=== PATIENT | female | born 1960 | race Caucasian/White ===

== ENCOUNTER 2016-10-10 12:59 | Observation (INO) | payer OTHER ==
--- NOTE | ~2016-10-10 | HP ---
History And Physical [place] [id number] [facility] [address] NAME: ANA MARIA IZQUIERDO : 58 STATUS : ADM Radha PAT#: [id number] AGE: 56 ADM/REG DATE : 10/10/16 MR#: [id number] REPORT SERV DATE: 10/11/16 DICTATED BY: IDALMIS COLLINS DATE: 10/11/16 REPORT STATUS : Draft TRANSCRIBED BY: MODBradley DATE: 10/11/16 DATE OF ADMISSION: 10/10/2016 FORGING DIE SINKER: Tk Padgett M.D., Ph.D, F.A.C.C. CHIEF COMPLAINT: Exertional chest pain. HISTORY OF PRESENT ILLNESS: A very pleasant, 56-year-old, white female with known history of CAD, identified by cath in 2010, has mild to moderate disease in her LAD and circumflex but with small vessel disease as well that is not amenable to intervention. The patient states that over the last several weeks she has had chest pain described as a pressure and a sharp sensation particularly when she is exercising. It at times radiates to her left arm, described as a tingling, and she reports associated shortness of breath, nausea, diaphoresis, dizziness, and belching. At its most intense, the chest pain is rated a 5/10. At time of interview in the CPOU, she is pain free. The episodes last approximately 10 minutes in duration. They resolve with rest and has not required nitroglycerin. At this point, she did report these symptoms to her PCP and the [facility] with a recommendation to come to the emergency room for further evaluation. The patient reports claudication symptoms as well on her right lower extremity with exertion. She has testing scheduled for 10/15 through her PCP's office. The patient denies any personal history of myocardial infarction, stroke, DVT, or pulmonary embolus. The patient recently treated for bronchitis with antibiotics. Denies palpitations. No syncopal episodes. Denies PND or orthopnea. PAST MEDICAL HISTORY: 1. CAD with small vessel disease, not amenable to PCI. 2. Hypertension. 3. Dyslipidemia. 4. AODM. 5. GERD. 6. Crohn's. 7. Fibromyalgia. 8. Hiatal hernia. 9. Narcolepsy. 10.Remote tobacco abuse. 11.Positive family history for early CAD. PAST SURGICAL HISTORY: 1. Hysterectomy. 2. Bilateral carpal tunnel. 3. Cyst removed from left knee and left foot. 4. Cholecystectomy. 5. Appendectomy. SOCIAL HISTORY: She is with three children, disabled secondary to her fibromyalgia. History And Physical [address] [address] NAME: ANA MARIA IZQUIERDO : 58 STATUS : ADM Radha PAT#: [id number] AGE: 56 ADM/REG DATE : 10/10/16 MR#: [id number] REPORT SERV DATE: 10/11/16 DICTATED BY: IDALMIS COLLINS DATE: 10/11/16 REPORT STATUS : Draft TRANSCRIBED BY: MANUEL DATE: 10/11/16 She has been exercising at the gym 3 times weekly, most recently this past Saturday, but has experienced chest pain. Quit smoking 25 years ago. Denies alcohol or illicit's. FAMILY HISTORY: Father of cancer. Mother with aortic valve replacement. Two brothers with heart attacks in their 30s and 40s. Remain alive in their 40s and 50s. REVIEW OF SYSTEMS: A 14-point review of systems performed, significant for HPI including home blood pressure reportedly as "fine." Home blood sugar of 110. Otherwise, complete review of systems obtained and negative. ALLERGIES: CONTRAST DYE, RESPIRATORY DISTRESS. PENICILLIN, SHORT OF BREATH, RASH, ITCHING. BACTRIM, RASH, ITCHING. PENTASA, ITCHING, SEVERE MIGRAINE. METAMUCIL, BLOATING. HOME MEDICATIONS: Tylenol p.r.n., aspirin 162 mg daily, atorvastatin 40 mg nightly, estradiol 0.5 mg daily, gabapentin 300 mg daily and 600 mg nightly, glipizide 10 mg daily, hydrocodone 7.5/325 twice daily as needed, losartan 25 mg daily, metformin 1000 mg twice daily, metoprolol tartrate 25 mg twice daily, nitroglycerin p.r.n., omeprazole 80 mg daily. PHYSICAL EXAMINATION: VITAL SIGNS: Bilateral blood pressures on arrival, right 140/63, left 147/66, this morning 132/60, pulse 64, respirations 13, temperature 97.6, O2 saturation 97% on room air, height 5 feet 3 inches, weight 207 pounds, BMI 36.6. GENERAL: Cooperative, in no apparent distress. HEENT: Pupils 2 mm, sclera nonicteric. Nares patent. Moist mucous membranes. No xanthelasma. NECK: Trachea midline, no thyromegaly. No JVD. No bruits. LYMPH: No cervical lymphadenopathy. No supraclavicular lymphadenopathy. RESPIRATORY: Unlabored respirations. Breath sounds clear bilaterally to posterior auscultation. No wheezes or rhonchi. CARDIOVASCULAR: Regular rate. No murmur, rub or gallop appreciated. Extremities without edema. Pulses 2+ bilaterally. ABDOMEN: Obese, soft, nontender, nondistended, normal bowel sounds auscultated throughout. No organomegaly appreciated. SKIN: Warm, dry extremities. No pallor, or cyanosis. PSYCHIATRIC: Appropriate affect. Alert, oriented x3. LABORATORY DATA: Troponin less than 0.02 twice. Potassium 4.1, BUN 12, creatinine 0.65, glucose 101, magnesium 2.2 (previously 1.5). WBC 7.4, hemoglobin 9.7, hematocrit 30.1, platelet count 263,000. EKG sinus rhythm with first-degree AV block. MPI 05/2015: Ayden stage III, 7.53 minutes, 10 METs, no ischemia. Cath 08/2010 ([facility]): Mild to moderate CAD, LAD, and circumflex. 90% 2nd diagonal, small vessel. Circumflex small vessel, 1.5 mm diameter at branches downstream. ASSESSMENT AND PLAN: History And Physical [address] [address] NAME: ANA MARIA IZQUIERDO : 58 STATUS : ADM Radha PAT#: [id number] AGE: 56 ADM/REG DATE : 10/10/16 MR#: [id number] REPORT SERV DATE: 10/11/16 DICTATED BY: IDALMIS COLLINS DATE: 10/11/16 REPORT STATUS : Draft TRANSCRIBED BY: MODL DATE: 10/11/16 1. Exertional chest pain. The patient has been observed in the CPOU overnight to rule out myocardial infarction with serial enzymes and serial EKGs and held n.p.o. We will proceed with MPI today. The patient will be discharged home if low risk, no ischemia. If anything suggestive of ischemia, Cardiology referral will be initiated. Otherwise, the patient will be asked to follow up with her PCP and Dr. Padgett as appropriate. Would consider the addition of Imdur if stress test without ischemia. 2. Coronary artery disease. No PCI today. The patient has moderate disease in small vessels not amenable to stenting. We will continue home medications. 3. Hypertension. Monitor blood pressure and continue home medications. 4. Dyslipidemia. Continue statin. 5. Adult onset diabetes mellitus. Hold metformin level 1 sliding scale correction. 6. Possible claudication symptoms are reported. The patient instructed to keep her testings which is scheduled for Saturday, 10/15. The patient will follow up with PCP and Dr. Padgett on an outpatient basis. LAURA/MODL GERTRUDE Rose, [employer]CH[employer]IC-BC / [id number] CC: GERTRUDE Rose, [employer] MECH[employer]IC-BC Margaret Padgett M.D., Ph.D, F.A.C.C.
[~2016-10-10 12:59] MED LIST: ACET500CAP PO; ASAB PO; BIST PO; CLARIT10 PO; COZ25 PO; COZ50 PO; ESTRACE0.5 MG PO; FORTAMET500 MG PO; GLUCOPHAGE1000 MG PO; GLUCXL10 PO; GLUCXL5 PO; HALF81 PO; LIPITOR40 PO; LOP25 PO; LORTAB 5 PO; MOBIC15 MG PO; NEUR300 PO; NEUR600 PO; NITROSTAT0.4 MG SL; NORCO1 TA2 PO; PRILO PO; PRILOSEC40 MG PO; PRIN10 PO; ZOCOR40 PO
[2016-10-10 13:28] LABS: BASOPHILS 0.8 %; BASOPHILS ABSOLUTE 0.06 10/3/uL (0.0-0.16); EOSINOPHILS 5.4 %; HEMATOCRIT 30.1 % (36.0-48.0); HEMOGLOBIN 9.7 g/dL (12.0-16.0); IMMATURE GRANULOCYTES 0.3 %; IMMATURE GRANULOCYTES ABSOLUTE 0.02 10/3/uL (0.0-0.11); LYMPHOCYTES 30.9 %; MANUAL DIFF NO %; MEAN CORPUS HGB CONC 32.2 g/dL (32.0-36.0); MEAN CORPUSCULAR HEMOGLOB 25.5 pg (26.0-34.0); MEAN PLATELET VOLUME 8.8 fL (9.2-13.0); MONOCYTES 6.6 %; MONOCYTES ABSOLUTE 0.49 10/3/uL (0.21-1.20); NEUTROPHILS ABSOLUTE 4.17 10/3/uL (2.02-8.40); PLATELET COUNT 263 10/3/uL (150-400); RBC DISTRIBUTION WIDTH 16.4 % (12.0-16.0); RED CELL COUNT 3.81 10/6/uL (4.0-5.6); WHITE BLOOD CELLS 7.4 10/3/uL (4.5-10.5)
[2016-10-10 13:36] LABS: PARTIAL THROMBO TIME 25.8 SEC (22.5-37.2)
[2016-10-10 13:44] LABS: BUN (BLOOD UREA NITROGEN) 15 MG/DL (6-23); CALCIUM, SERUM 8.1 MG/DL (8.5-10.4); CHEST PAIN PROFILE TAT 0 Hrs 20 Mins; CHLORIDE, SERUM 107 MMOL/L (96-112); CO2 (CARBON DIOXIDE) 24 MMOL/L (24-34); CREATININE 0.88 MG/DL (0.55-1.02); GFR AFRICAN AMERICAN 85 ML/MIN (>=60); GFR NON AFRICAN AMERICAN 73 ML/MIN (>=60); GLUCOSE, SERUM 123 MG/DL (60-99); POTASSIUM, SERUM 4.1 MMOL/L (3.5-5.3); SODIUM, SERUM 141 MMOL/L (135-148); TROPONIN I <0.02 NG/ML (<0.05)
[2016-10-11 07:03] LABS: BUN (BLOOD UREA NITROGEN) 12 MG/DL (6-23); CALCIUM, SERUM 8.9 MG/DL (8.5-10.4); CHLORIDE, SERUM 110 MMOL/L (96-112); CO2 (CARBON DIOXIDE) 25 MMOL/L (24-34); CREATININE 0.65 MG/DL (0.55-1.02); GFR AFRICAN AMERICAN 114 ML/MIN (>=60); GFR NON AFRICAN AMERICAN 99 ML/MIN (>=60); GLUCOSE, SERUM 101 MG/DL (60-99); POTASSIUM, SERUM 4.1 MMOL/L (3.5-5.3); SODIUM, SERUM 143 MMOL/L (135-148)
[2016-10-12 04:37] LABS: BASOPHILS 0.5 %; BASOPHILS ABSOLUTE 0.03 10/3/uL (0.0-0.16); EOSINOPHILS 2.3 %; EOSINOPHILS ABSOLUTE 0.15 10/3/uL (0.0-0.53); HEMATOCRIT 30.6 % (36.0-48.0); HEMOGLOBIN 9.8 g/dL (12.0-16.0); IMMATURE GRANULOCYTES 0.3 %; IMMATURE GRANULOCYTES ABSOLUTE 0.02 10/3/uL (0.0-0.11); LYMPHOCYTES 20.7 %; LYMPHOCYTES ABSOLUTE 1.34 10/3/uL (0.67-4.30); MEAN CORPUSCULAR VOLUME 78.1 fL (80-100); MEAN PLATELET VOLUME 9.4 fL (9.2-13.0); MONOCYTES 4.2 %; MONOCYTES ABSOLUTE 0.27 10/3/uL (0.21-1.20); NEUTROPHILS ABSOLUTE 4.65 10/3/uL (2.02-8.40); PLATELET COUNT 269 10/3/uL (150-400); RBC DISTRIBUTION WIDTH 16.6 % (12.0-16.0); RED CELL COUNT 3.92 10/6/uL (4.0-5.6); WHITE BLOOD CELLS 6.5 10/3/uL (4.5-10.5)
[2016-10-12 04:38] LABS: MANUAL DIFF NO %
[2016-10-12 05:00] LABS: BUN (BLOOD UREA NITROGEN) 15 MG/DL (6-23); CHLORIDE, SERUM 107 MMOL/L (96-112); CHOL/HDL RATIO(NOT ORDER) 2.5 (0-5); CHOLESTEROL 126 MG/DL (< 200); CO2 (CARBON DIOXIDE) 26 MMOL/L (24-34); CREATININE 0.86 MG/DL (0.55-1.02); GFR AFRICAN AMERICAN 87 ML/MIN (>=60); GFR NON AFRICAN AMERICAN 75 ML/MIN (>=60); HDL CHOLESTEROL 50 MG/DL (> 49); LDL CHOLESTEROL 54 MG/DL (< 130); NON-HDL CHOLESTEROL 76 MG/DL (< 160); POTASSIUM, SERUM 4.5 MMOL/L (3.5-5.3); SODIUM, SERUM 141 MMOL/L (135-148); TRIGLYCERIDE 112 MG/DL (< 150)
[2016-10-12 05:01] LABS: GLUCOSE, SERUM 186 MG/DL (60-99)
[2016-10-12] MEDS ORDERED: IMDUR30 PO (15:06)
== END 2016-10-12 15:33 | disposition home or self-care (01) ==
LOC: ER 12:59 → CDU1 17:28 → CDU2 19:20
PROVIDERS: Clinical Nurse Specialist; Emergency Medicine
PROC: 4A023N7 Measurement of Cardiac Sampling and Pressure, Left Heart, Percutaneous Approach (ICD-10-PCS; principal; 2016-10-10)
PROC: B2111ZZ Fluoroscopy of Multiple Coronary Arteries using Low Osmolar Contrast (ICD-10-PCS; 2016-10-10)
PROC: B2151ZZ Fluoroscopy of Left Heart using Low Osmolar Contrast (ICD-10-PCS; 2016-10-10)
DX: I25.110 Atherosclerotic heart disease of native coronary artery with unstable angina pectoris (principal); I10 Essential (primary) hypertension; E78.5 Hyperlipidemia, unspecified; E11.9 Type 2 diabetes mellitus without complications; E78.00 Pure hypercholesterolemia, unspecified; K21.9 Gastro-esophageal reflux disease without esophagitis; K44.9 Diaphragmatic hernia without obstruction or gangrene; G47.419 Narcolepsy without cataplexy; M79.7 Fibromyalgia; Z88.0 Allergy status to penicillin; Z88.2 Allergy status to sulfonamides; Z87.891 Personal history of nicotine dependence; K50.90 Crohn's disease, unspecified, without complications; Z90.710 Acquired absence of both cervix and uterus; Z90.49 Acquired absence of other specified parts of digestive tract; Z80.9 Family history of malignant neoplasm, unspecified; Z82.49 Family history of ischemic heart disease and other diseases of the circulatory system; Z91.041 Radiographic dye allergy status; Z88.8 Allergy status to other drugs, medicaments and biological substances; Z79.84 Long term (current) use of oral hypoglycemic drugs; Z79.82 Long term (current) use of aspirin; Z79.818 Long term (current) use of other agents affecting estrogen receptors and estrogen levels; Z79.899 Other long term (current) drug therapy; Z98.890 Other specified postprocedural states
CPT/HCPCS: 71020; 78452; 80048; 80061; 82962; 83735; 84484; 85025; 85610; 85730; 93005; 93017; 93458; 96374; 96375; 96376; 99152; 99153; 99285; A9270-GY; A9502; C1769; C1887; C1894; G0378; J1200; J2250; J2920; J3010; Q9967